=== PATIENT | male | born 1995 | race Caucasian/White ===

== ENCOUNTER 2018-07-27 23:58 | Emergency (ER) | payer OTHER ==
[~2018-07-27] VITALS: Ht 177.8 cm; Wt 83.6 kg
[~2018-07-27 23:58] MED LIST: ALLEGRA-D 2424 HOUR; ALLEGRA180 M1 PO; ALLEGRA30 MG OR; AMOXICILLIN500 MG PO; AMOXICILLIN875 MG PO; ANTI-FUNGAL12 TOP; ANTIBIOTICS; CIPROFLOXACN500 MG PO; DENIES CURRENT MEDS; FERROUS SULF325 M3 PO; FLUTICASONE50 MCG; FLUZONE SPLT1 M1 IM; GARDASIL IM; HAVRIX720 UNI1 IM; MENACTRA PO; MULT VITAMI1; POM IJ; POM PO; POM SC; TESSALON200 MG PO; TUBERSOL5 MG/0.1 M ID
[2018-07-28] MEDS ORDERED: BENADRYL 50MG C50 MG PO (02:29)
[2018-07-28 02:39] VITALS: BP 121/56
== END 2018-07-28 02:40 | disposition home or self-care (01) | DRG 916 ==
LOC: ED 23:58
DX: T78.3XXA Angioneurotic edema, initial encounter (principal); R22.0 Localized swelling, mass and lump, head

== ENCOUNTER → 2018-10-08 | Outpatient (REF) ==
[~2018-10-08] MED LIST changes: +BENADRYL 50MG C50 MG PO
[2018-10-08 10:05] LABS: URINE BILIRUBIN - DIPSTICK NEGATIVE (NEGATIVE); URINE BLOOD DIPSTICK NEGATIVE (NEGATIVE); URINE COLOR YELLOW; URINE GLUCOSE - DIPSTICK NEGATIVE (NEGATIVE); URINE KETONE NEGATIVE (NEGATIVE); URINE LEUK ESTERASE NEGATIVE (Negative); URINE NITRITE - DIPSTICK NEGATIVE (Negative); URINE PH 6.5 (4.5-8.0); URINE PROTEIN - DIPSTICK NEGATIVE (NEG-TRACE); URINE SPECIFIC GRAVITY <=1.005; URINE UROBILINOGEN - DIPSTICK 0.2 E.U./dL (0.2)
[2018-10-08 10:08] LABS: HEMATOCRIT 45.1 % (39.0-50.0); HEMOGLOBIN 15.1 g/dl (14.0-18.0); MEAN CORPUSCULAR HGB 28.9 pG CALC (26.0-32.0); MEAN CORPUSCULAR HGB CONC 33.5 g/L CALC (32.0-36.0); NEUT# 1.88 thou/uL (1.82-7.42); RED BLOOD COUNT 5.23 mill/uL (4.70-6.10); RED CELL DISTRI WIDTH 12.4 % (11.5-15.5)
[2018-10-08 10:24] LABS: ALBUMIN 4.6 g/dL (3.2-5.0); ALKALINE PHOSPHATASE 77 u/l (38-126); ANION GAP 13 (6-22 (CALC)); BILIRUBIN, TOTAL 0.4 mg/dL (0.0-1.4); BUN 8 mg/dL (9-20); BUN/CREATININE RATIO 9 (12-20 (CALC)); CARBON DIOXIDE 27 mmol/l (22-30); CHLORIDE 103 mmol/l (95-108); CREATININE 0.9 mg/dL (0.7-1.3); GFR > 60 ML/MIN (>=60 (CALC)); GFR FOR AFR.AMER. > 60 ML/MIN (>=60 (CALC)); POTASSIUM 4.4 mmol/l (3.5-5.1); SGOT/AST 31 u/l (17-59); SODIUM 139 mmol/l (137-146)
[2018-10-08 10:25] LABS: MEAN CELL VOLUME 86.2 fL CALC (80.0-100.0)
[2018-10-08 10:26] LABS: URINE CLARITY CLEAR
== END | disposition home or self-care (01) | DRG 951 ==
LOC: LAB 08:59
PROVIDERS: ATTEND Nurse Practitioner Family
DX: Z02.1 Encounter for pre-employment examination (principal)

== ENCOUNTER 2022-03-24 09:56 | Emergency (ER) | payer OTHER ==
[~2022-03-24] VITALS: Ht 177.8 cm; Wt 87.7 kg
[2022-03-24 12:23] VITALS: BP 105/73
== END 2022-03-24 12:22 | disposition home or self-care (01) | DRG 556 ==
LOC: ED 09:56
DX: M25.571 Pain in right ankle and joints of right foot (principal); X50.0XXA Overexertion from strenuous movement or load, initial encounter; Y93.A5 Activity, obstacle course; Y92.89 Other specified places as the place of occurrence of the external cause; Y99.0 Civilian activity done for income or pay